=== PATIENT | male | born 1945 | race Caucasian/White ===

== ENCOUNTER 2020-08-20 07:40 | Observation (INO) | payer MEDICARE, OTHER ==
[2020-08-20] VITALS (8 sets, daily range): BP systolic 104–118; BP diastolic 56–85
[~2020-08-20] VITALS: Ht 167.6 cm; Wt 97.1 kg
--- NOTE | ~2020-08-20 | H ---
[address] [address] HISTORY AND PHYSICAL Name: URSULA RENO Room: [address] Marybeth Garnett#: [id number] Admission: 08/20/20 Attend Phys: Gonsalo Galaviz MD, Discharge: 08/21/20 Date of : 41 Report #: [id number] THIS REPORT FOR: //name// cc: Ursula Bailey Jr., MD, Jr., Samuel D. MD ~ CC: Gonsalo Bailey REASON FOR ADMISSION: For cardiac catheterization. HISTORY OF PRESENT ILLNESS: The patient is a 75-year-old male with coronary artery disease, who is now approximately 24 years, status post inferior infarction interrupted by PTCA of the right coronary artery. Recently, he has noted some fatigability and dyspnea with moderate activity. He denied chest pain typical of angina. He has underlying hypertension, hypercholesterolemia and weight excess. MEDICATIONS: Include aspirin 81 mg daily, hydrochlorothiazide 25 mg daily, lisinopril 40 mg daily, simvastatin 40 mg daily. Noncardiac medicines include Zyrtec, gabapentin, L-thyroxine and omeprazole. PAST MEDICAL HISTORY: Remarkable for hypertension, hypercholesterolemia, weight excess and gastroesophageal reflux disease. SOCIAL HISTORY: The patient is . He is a prior smoker. REVIEW OF SYSTEMS: Remarkable for the following: GENERAL: There has been modest weight increase. PULMONARY. He notes some dyspnea on exertion. Remainder unremarkable. PHYSICAL EXAMINATION: GENERAL: Demonstrates a moderately overweight elderly male, in no acute distress. VITAL SIGNS: Blood pressure is 135/72, pulse rate is 64, respirations are 18 per minute. NECK: Jugular venous pressure is normal. Carotids are 1-2+. CHEST: Clear. CARDIAC: Reveals normal first and second heart sounds without rubs, murmurs, clicks or gallops. ABDOMEN: Modestly obese. EXTREMITIES: Without edema with intact femoral, pedal and radial pulses. Recent nuclear stress test is abnormal with a significant area of [place] [address] HISTORY AND PHYSICAL Name: URSULA RENO Room: [address] Marybeth Garnett#: [id number] Admission: 08/20/20 Attend Phys: Gonsalo Galaviz MD, Discharge: 08/21/20 Date of : 41 Report #: [id number] IMPRESSION: 1. Coronary artery disease. 2. Recently abnormal nuclear stress test with significant induced ischemic burden in the inferior region. 3. Status post prior percutaneous coronary intervention. 4. Hypertension. 5. Hypercholesterolemia. 6. Hypothyroidism. 7. Exogenous obesity. RECOMMENDATIONS: Given the aforementioned clinical scenario with known coronary artery disease, status post remote PCI, recent dyspnea on exertion and abnormal nuclear stress test with significant inducible inferior ischemia, I would recommend proceeding with cardiac catheterization to define the magnitude of coronary artery disease and prospects for subsequent therapeutic modification. This has been discussed in detail with the patient and family. By: 0824 0852Gonsalo Galaviz MD, [facility] /nt
[~2020-08-20 07:40] MED LIST: ASA81BEC PO; HYDROCHLOROTHIA25 M1 PO; LEVOTHYROXINE100 MC1 PO; LISINOPRIL40 MG PO; NEURONTIN100 MG PO; OMEPRAZOLE 20 M20 M1 PO; SIMVASTATIN40 MG PO; ZYRTEC10 M5 PO
[2020-08-20 08:24] LABS: HEMOGLOBIN 15.8 gm/dL (14.0-18.0); MCH 31.5 pg (26.0-34.0); MCHC 34.4 g/dL (28.0-37.0); MCV 91.6 fL (80.0-100.0); MPV 7.9 fl. (7.2-11.1); RBC 5.02 mil/uL (4.50-6.00); RDW-CV 13.8 % (10.5-14.5); WBC 7.1 thou/uL (4.0-11.0)
[2020-08-20 08:34] LABS: PROTIME 10.7 Seconds (9.20-11.50)
[2020-08-20 08:36] LABS: ANION GAP 6 mmol/L (7-16); BUN 27 mg/dL (7-18); CALCIUM 9.2 mg/dL (8.5-10.1); CHLORIDE 98 mmol/L (98-107); CO2 31 mmol/L (21-32); CREATININE 1.6 mg/dL (0.6-1.3); GLUCOSE 85 mg/dL (70-99); POTASSIUM 3.6 mmol/L (3.5-5.1); SODIUM 135 mmol/L (136-145)
[2020-08-20 08:41] LABS: ALKALINE PHOSPHATASE 70 U/L (46-116); SGOT 23 U/L (15-37); SGPT 20 U/L (30-65); TOTAL BILIRUBIN 0.8 mg/dL (<0.1-1.0); TOTAL PROTEIN 7.7 g/dL (6.4-8.2)
[2020-08-20 08:57] LABS: CHOLESTEROL 139 mg/dL (<200); HDL CHOLESTEROL 37 mg/dL (>40); LDL CHOLESTEROL 78 mg/dL (<100); TC:HDL 3.8 Ratio (Not establshd); TRIGLYCERIDE 120 mg/dL (<150); VLDL 24 mg/dL (<40)
[2020-08-20 08:58] LABS: SERUM ASSESSMENT Clear
--- NOTE | 2020-08-20 13:57 | EKG ---
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 08/20/20 1357 0848 0848 Gonsalo Galaviz MD, [facility] /EPI
--- NOTE | 2020-08-20 14:00 | EKG ---
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: JAMIA : 1945 Requested By: Gonsalo Galaviz Order Number: [id number] Mei MD: Gonsalo Galaviz Measurements Intervals [place] Rate: 77 P: 60 AL: 146 QRS: -31 QRSD: 120 T: 43 QT: 399 QTc: 452 Interpretive Statements Sinus rhythm IVCD, compatible with right bundle branch block Compared to ECG 08/20/2020 08:48:06 Left posterior fascicular block no longer present Electronically Signed On 08-20-2020 13:59:54 CDT by Gonsalo Galaviz [email or web address] <ELECTRONICALLY SIGNED> By: Gonsalo Galaviz MD, FACC 08/20/20 1359 1255 1255 Gonsalo Galaviz MD, FACC /EPI
[2020-08-21 04:00] VITALS: BP 108/63
[2020-08-21 05:12] LABS: HEMATOCRIT 39.1 % (42.0-52.0); MCH 31.5 pg (26.0-34.0); MCHC 34.3 g/dL (28.0-37.0); MCV 91.9 fL (80.0-100.0); MPV 8.1 fl. (7.2-11.1); RBC 4.25 mil/uL (4.50-6.00); RDW-CV 13.9 % (10.5-14.5)
[2020-08-21 05:32] LABS: HEMOGLOBIN 13.4 gm/dL (14.0-18.0)
[2020-08-21 05:44] LABS: ALBUMIN 3.2 g/dL (3.4-5.0); CALCIUM 8.3 mg/dL (8.5-10.1); CREATININE 1.4 mg/dL (0.6-1.3); POTASSIUM 3.9 mmol/L (3.5-5.1); TOTAL BILIRUBIN 0.6 mg/dL (<0.1-1.0); TOTAL PROTEIN 6.2 g/dL (6.4-8.2); TROPONIN-I LEVEL 0.26 ng/mL (<0.06)
[2020-08-21 08:50] VITALS: BP 1153/71
[2020-08-21] MEDS ORDERED: EFFIENT10 MG PO (09:17)
[2020-08-21 10:17] VITALS: BP 1153/71
--- NOTE | 2020-08-21 10:29 | EKG ---
[place] [address] ELECTROCARDIOGRAM REPORT Name: URSULA RENO Room: [address] M.R.#: [id number] Admission: 08/20/20 Attend Phys: Sakina Yoder Discharge: Date of : 41 Date of Service: 08/21/20 0354 Report #: [id number] THIS REPORT FOR: //name// [facility] Test Date: 2020-08-21 Test Time: 03:54:36 Pat Name: URSULA RENO Department: Room: [facility] Gender: M Director Of Income Tax: NANCY : 1945 Requested By: Gonsalo Galaviz Order Number: [id number] Mei MD: Broderick Knott Measurements Intervals [place] Rate: 55 P: 38 IN: 159 QRS: -2 QRSD: 138 T: 50 QT: 446 QTc: 427 Interpretive Statements Sinus bradycardia Right bundle branch block Compared to ECG 08/20/2020 12:55:04 rate has slowed Electronically Signed On 08-21-2020 10:29:46 CDT by Broderick Knott [email or web address] <ELECTRONICALLY SIGNED> By: Broderick Knott MD, FACC 08/21/20 1029 0354 0354 Broderick Knott MD, [facility] /EPI
--- NOTE | 2020-08-21 10:33 | D ---
[address] [address] DISCHARGE SUMMARY Name: URSULA RENO Room: [address] M.RAnkush#: [id number] Admission: 08/20/20 Attend Phys: Gonsalo Galaviz MD, Discharge: Date of : 41 Report #: [id number] THIS REPORT FOR: //name// cc: Ursula Bailey Jr., MD, Jr.,Ursula Alejandro MD ~ THIS REPORT FOR: //name// CC: Gonsalo Bailey DATE OF SERVICE: 08/21/2020 FINAL DISCHARGE DIAGNOSES: 1. Abnormal nuclear stress test. 2. Coronary artery disease. 3. Status post PCI of the right coronary artery. 4. Hypercholesterolemia. 5. Hypothyroidism. PROCEDURES: On 08/20/2020 -- left heart catheterization, left ventriculography, selective coronary arteriography, and percutaneous coronary intervention with deployment of drug-eluting stent at the site of 80% eccentric calcified azn-zy-evmgsc right coronary stenosis. The patient is a very pleasant and active 75-year-old male who is now 24 years status post prior PCI of the right coronary artery. Recently nuclear stress test demonstrated a large inducible inferior defect. He has noted dyspnea on exertion without accompanying chest discomfort. There is underlying hypercholesterolemia and hypothyroidism. In that context, I performed cardiac catheterization on 08/20/2020, which revealed 80% eccentric calcified zdl-bu-zcekxa right coronary stenosis with 30% proximal and midvessel narrowing prior to this lesion, 30% mid LAD and 20% mid circumflex narrowing. LV function was normal with estimated ejection fraction of 60%. I performed complex PCI in the mid to distal right coronary artery, deploying one 2.5 x 26 mm [place] drug-eluting stent facilitated by use of a GuideLiner catheter to achieve distal stent positioning. The patient did well post-procedurally with an inconsequential increase in troponin to 0.26. He had no chest pain post-procedurally. LABORATORY DATA: On 08/21/2020 revealed sodium of 135, potassium 3.9, BUN 24, creatinine 1.4. Hemoglobin 13.4, white blood cell count 7000 with 253,000 [place] [address] DISCHARGE SUMMARY Name: URSULA RENO Room: [address] MAnkush.#: [id number] Admission: 08/20/20 Attend Phys: Gonsalo Galaviz MD, Discharge: Date of : 41 Report #: [id number] He ambulated in the hallways without difficulty. DISCHARGE MEDICATIONS: The patient was discharged home on the following medications: Prasugrel or Effient 10 mg daily, loratadine 10 mg daily, gabapentin 100 mg daily, L-thyroxine 175 mcg daily, atorvastatin 20 mg at bedtime, pantoprazole 40 mg b.i.d., and aspirin 81 mg daily. I will plan to see the patient in followup on 09/21/2020 at 13:10 at [facility]. Therefore, the patient is discharged home in stable condition on the aforementioned medications with followup as described above. <ELECTRONICALLY SIGNED> By: Gonsalo Galaviz MD, FACC 08/21/20 1033 1005 1024Jojames Galaviz MD, FAC /nt
--- NOTE | 2020-08-24 10:47 | CARD ---
[address] [address] CARDIAC CATH REPORT Name: URSULA RENO Room: [address] Marybeth Garnett#: [id number] Admission: 08/20/20 Attend Phys: Gonsalo Galaviz MD, Discharge: 08/21/20 Date of : 41 Report #: [id number] THIS REPORT FOR: //name// cc: Ursula Bailey Jr., MD, Jr., Samuel D. MD ~ ADDENDUM APPROVED REPORT Study performed: 08/20/2020 08:33:18 Patient Details The patient is a 75 year-old male Event Personnel Gonsalo Galaviz Furnace Combustion Tester, Radha Corral RN Inspector Rough Castings, Fawn Lomax RTR Scrub, Amelia Crockett RTR Monitor Procedures Performed Right femoral artery access, Left heart catheterization, left echography selective coronary arteriography, and PCI to the mid to distal right coronary with use of a guideliner mother daughter guide system to achieve distal stent positioning, Hemostasis with Angioseal Indication Positive stress test Risk Factors Obesity, Hypercholesterolemia, Hypertension Previous Procedures/Diagnoses Previous PCI Admission/Lab Medications/Medications given during procedure Angiomax IV bolus 14.5 ml, Angiomax IV 34.19 ml per hr, Aspirin PO 162 mg, Effient PO 60 mg Procedure Narrative The patient was brought electively to the Cardiac Catheterization Laboratory and was prepped and draped in a sterile manner. The right femoral groin was infiltrated with 1% Lidocaine subcutaneous anesthesia. A 6F [place] sheath was inserted into the right femoral artery. Coronary angiography was performed using coronary diagnostic catheters. The right coronary system was accessed and visualized with a 6F JR4 catheter. The left coronary system [place] [address] CARDIAC CATH REPORT Name: URSULA RENO Room: [address]#: [id number] Admission: 08/20/20 Attend Phys: Gonsalo Galaviz MD, Discharge: 08/21/20 Date of : 41 Report #: [id number] visualized with a 6F JL4 catheter. The left ventricle was accessed and visualized with a 5F Straight Pigtail catheter. Left ventricular/Aortic Valve gradient assessed via catheter pullback. Left ventriculogram was performed in BALES projection. Pre-demployment femoral angiogram was performed . Closure device was deployed with a 6 Fr Angioseal STS. The patient tolerated the procedure well and there were no complications associated with the procedure. There was no hematoma. Intraoperative Conscious Sedation Sedation start time: 10:14 Case end Time: 12:04 Fentanyl 75.0 mcg Versed 2.5 mg Fluoro Time: 39.3 minutes Dose: DAP 731972 cGycm2 4687.36 mGy Contrast Type and Amount: 325 Coronary Angiography The patient's coronary anatomy is right dominant. Diagnostic Cath Left Main 0% narrowing LAD 30% mid vessel narrowing Circumflex 30% mid vessel narrowing Right Coronary Dominant vessel with diffuse calcification. There was 30% proximal mid vessel narrowing with 80% heavily calcified stenosis surrounding the acute margin spanning the mid to distal right coronary artery Left Ventriculography The left ventricle is normal in size with normal contractility. The left ventricular ejection fraction is estimated to be 60%. Left ventricular wall motion abnormalities are not present. There is no mitral insufficiency. Hemodynamics The aortic pressure is 110/70 mmHg with a mean of 82 mmHg. The left ventricular end diastolic pressure is 8 mmHg. There was no gradient across the aortic valve upon pullback. PCI Technique Lesion Anticoagulation was achieved with Angiomax. Patient was preloaded with Angiomax IV bolus 14.5 ml. Percutaneous coronary intervention was performed on the Mid to distal right coronary artery. The lesion stenosis prior to intervention was 80% with LESLY 3 flow. A 6 Austrian 3 [place] [address] CARDIAC CATH REPORT Name: URSULA RENO Room: [address] [id number] Admission: 08/20/20 Attend Phys: Gonsalo Galaviz MD, Discharge: 08/21/20 Date of : 41 Report #: [id number] DRC Guide Catheter was used to engage the Right ostium. A 014 BMW 190cm and 014 ProwaterFlex 180cm Interventional Guidewire was used to cross the lesion. BALLOON DILATION A Balloon catheter 2.5 x 15 trek, 2.75 x 12 NC trek was inserted and inflated up to 12-20atm for 10seconds. STENT DEPLOYMENT A drug-eluting stent 2.5 x 26 mm [place] was inserted and inflated up to 16atm for 15seconds. POST STENT DEPLOYMENT BALLOON DILATION A Balloon catheter 2.75 x 12 trek was inserted and inflated up to 15atm for 10seconds. Final angiography reveals 10 % stenosis with LESLY 3 flow. COMMENTS The PCI was technically complex by virtue of the severe diffuse calcification, particularly afflicting the segment from the mid to distal right coronary artery. I attempted to achieve the distal stent positioning with the miguel wire technique which was unsuccessful. After advancing 5.5 Austrian guideliner to the mid right coronary artery, I was able to advance the drug-eluting stent to the mid to distal right coronary segment, deploying it there with a good angiographic result Conclusion 1. Significant coronary artery disease characterized by the following: A 30% proximal and mid right coronary narrowing followed by a heavily calcified segment of 80% stenosis of the mid to distal right coronary artery surrounding the acute margin B 30% mid LAD narrowing C 30% mid circumflex narrowing 2. Normal left ventricular systolic function, estimated ejection fraction being 60% 3. Normal left-[place] [address] CARDIAC CATH REPORT Name: URSULA RENO Room: [address] Marybeth Garnett#: [id number] Admission: 08/20/20 Attend Phys: Gonsalo Galaviz MD, Discharge: 08/21/20 Date of : 41 Report #: [id number] 4. Successful PCI with deployment of a drug-eluting stent at the site of 80% heavily calcified mid to distal right coronary stenosis with 10% residual narrowing following stent deployment and LESLY-3 flow to the distal vessel Recommendations Cardiac Risk Reduction Program Aggressive Medical Therapy Medications Administered Aspirin (any) Prasugrel Diagnostic Cath Approved by: Gonsalo Galaviz MD Date/Time: 08/20/2020 14:23:55 <ELECTRONICALLY SIGNED> By: Gonsalo Galaviz MD, FACC 08/24/20 1047 1047 1047Gonsalo Galaviz MD, FACC /INF
== END 2020-08-21 11:08 | disposition home or self-care (01) ==
LOC: M.CL 07:40 → M.TBA-CV 10:44 → M.2W 15:30
PROVIDERS: ADMIT Internal Medicine; ATTEND Internal Medicine
DX: I25.10 Atherosclerotic heart disease of native coronary artery without angina pectoris (principal); I10 Essential (primary) hypertension; E78.00 Pure hypercholesterolemia, unspecified; E66.9 Obesity, unspecified; E03.9 Hypothyroidism, unspecified; Z68.34 Body mass index [BMI] 34.0-34.9, adult; Z79.899 Other long term (current) drug therapy; Z20.828 Contact with and (suspected) exposure to other viral communicable diseases

== ENCOUNTER 2020-08-30 09:44 | Emergency (ER) | payer MEDICARE, OTHER ==
[~2020-08-30] VITALS: Ht 167.6 cm; Wt 100.5 kg
[~2020-08-30 09:44] MED LIST changes: +EFFIENT10 MG PO
[2020-08-30] MEDS ORDERED: FLOMAX0.4 MG PO (10:01)
[2020-08-30] MEDS ORDERED: VOLTAREN GEL 1100 GM (10:02)
[2020-08-30 10:40] LABS: ABSOLUTE EOSINOPHILS 0.1 thou/uL (0.0-0.7); ABSOLUTE LYMPHOCYTES 1.3 thou/uL (0.8-5.3); ABSOLUTE MONOCYTES 0.7 thou/uL (0.0-1.2); ABSOLUTE NEUTROPHILS 5.8 thou/uL (1.6-8.1); BASOPHILS 0.6 %; EOSINOPHILS 1.4 %; HEMATOCRIT 42.7 % (42.0-52.0); HEMOGLOBIN 14.6 gm/dL (14.0-18.0); MCH 31.5 pg (26.0-34.0); MCHC 34.3 g/dL (28.0-37.0); MCV 91.7 fL (80.0-100.0); MONOCYTES 8.9 %; MPV 8.3 fl. (7.2-11.1); NUCLEATED RBCS 0 /100WBC; PLATELET COUNT* 302 thou/uL (150-400); POLYS 73.1 %; RBC 4.66 mil/uL (4.50-6.00); RDW-CV 13.8 % (10.5-14.5); WBC 7.9 thou/uL (4.0-11.0)
[2020-08-30 10:48] LABS: CALCIUM 9.4 mg/dL (8.5-10.1); CREATININE 1.4 mg/dL (0.6-1.3)
[2020-08-30 10:59] LABS: ALBUMIN 3.9 g/dL (3.4-5.0); TOTAL BILIRUBIN 0.9 mg/dL (<0.1-1.0); TOTAL PROTEIN 7.4 g/dL (6.4-8.2)
[2020-08-30 11:07] LABS: INR 1.1; PROTIME 10.7 Seconds (9.20-11.50)
[2020-08-30 12:49] VITALS: BP 130/62
--- NOTE | 2020-08-30 18:32 | EKG ---
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 <ELECTRONICALLY SIGNED> By: Cesar Nelson MD, FACC 08/30/20 1832 1017 1017 Cesar Nelson MD, FACC /EPI
== END 2020-08-30 12:50 | disposition home or self-care (01) ==
LOC: M.ERS 09:44
PROVIDERS: Personal Emergency Response Attendant
DX: E03.9 Hypothyroidism, unspecified (principal); Z20.828 Contact with and (suspected) exposure to other viral communicable diseases; I10 Essential (primary) hypertension; R79.1 Abnormal coagulation profile; E78.5 Hyperlipidemia, unspecified; M19.90 Unspecified osteoarthritis, unspecified site; Z79.899 Other long term (current) drug therapy; Z79.82 Long term (current) use of aspirin